=== PATIENT | male | born 1995 | race Caucasian/White ===

== ENCOUNTER 2017-09-21 16:30 | Emergency (ER) | payer OTHER ==
--- NOTE | 2017-09-21 17:02 | EDPHY ---
H & P Stated Complaint: abrasion to left knee Time Seen by Provider: 09/21/17 16:49 HPI/ROS: CHIEF COMPLAINT: Knee pain and swelling HISTORY OF PRESENT ILLNESS: This is a 21-year-old in general good health who presents 4 days after injuring his left knee. He was playing baseball, slid on the field, creating an abrasion on the left knee. The following morning he noticed that the knee was swollen. He has some pain with flexion, partially because of the swelling. He is concerned about the appearance of the abrasion-- he notes that there is some yellow drainage and also that there is some warmth and redness around the abrasion itself. He has not had fever. He does not feel ill. He has been limping because of knee pain. REVIEW OF SYSTEMS: A ten point review of systems was performed and is negative with the exception of the items mentioned in the HPI. Past medical history: Negative Past surgical history: Negative Social history: He is a student. He has a primary care physician in [place]. General Appearance: Alert. Vital signs reviewed. Focused exam performed. Respiratory: Lungs are clear to auscultation; no wheezes, rales, or rhonchi. Cardiovascular: Regular rate and rhythm; no murmur, rub, or gallop. Gastrointestinal: Abdomen is soft and nontender, no masses or organomegaly, bowel sounds normal. Skin: Warm and dry, no rashes on exposed skin, normal color. Pulses: 2+ dorsalis pedis pulses bilaterally. Extremities: Left knee effusion. Full active extension, some pain with flexion at 45 degrees. No joint line tenderness. No ligamentous laxity with provocative testing. There is an abrasion, about the size of a quarter, overlying the left patella. There is fibrinous exudate on a bed of pink granulation tissue. Surrounding the abrasion there is mild warmth and erythema , no streaking. Neurological: Alert and oriented. Moving all four extremities easily and equally. Sensation intact to light touch over the lower extremities. Psychiatric: Normal affect. - Personal History Current Tetanus Diphtheria and Acellular Pertussis (TDAP): Yes - Medical/Surgical History Hx Asthma: No Hx Chronic Respiratory Disease: No Hx Diabetes: No Hx Cardiac Disease: No Hx Renal Disease: No Hx Cirrhosis: No Hx Alcoholism: No Hx HIV/AIDS: No Hx Splenectomy or Spleen Trauma: No Other PMH: adhd, appy, - Social History Smoking Status: Never smoked Constitutional: Initial Vital Signs Temperature (C) 37.4 C 09/21/17 16:37 Heart Rate 81 09/21/17 16:37 Respiratory Rate 16 09/21/17 16:37 Blood Pressure 128/69 H 09/21/17 16:37 O2 Sat (%) 96 09/21/17 16:37 O2 Delivery Mode Room Air Allergies/Adverse Reactions: No Known Allergies Allergy (Verified 09/21/17 17:45) Home Medications: Medication Instructions Recorded Cephalexin [Keflex] 500 mg PO TID #15 cap 09/21/17 Medical Decision Making - Diagnostics Imaging Results: Imaging Impressions Knee X-Ray 09/21/17 16:59 Impression: Negative for fracture. ED Course/Re-evaluation: A 21-year-old male with left knee abrasion that appears to have mild cellulitis surrounding the abrasion. The abrasion itself appears to be healing well with fibrinous exudate on a better granulation tissue. Knee x-ray does not show any evidence of fracture or foreign body. I do not suspect osteomyelitis. There is no evidence of ligamentous injury. He is being started on a short course of Keflex for treatment of a mild cellulitis. Departure - Departure Disposition: Home, Routine, Self-Care Clinical Impression: Abrasion Cellulitis Qualifiers: Site of cellulitis: extremity Site of cellulitis of extremity: lower extremity Laterality: left Qualified Code(s): L03.116 - Cellulitis of left lower limb Condition: Good Instructions: Cellulitis (ED), Abrasion (ED) Additional Instructions: Take antibiotic as prescribed. I think that you have a mild skin infection surrounding the abrasion. Adult Pain & Fever Control: We recommend Acetaminophen (Tylenol) and Ibuprofen (Motrin,Advil) for pain and fever control. When fever is high or pain severe, both drugs can be used at the same time, but at different intervals. Please note the time differences. Your dose is: Acetaminophen 650mg every 4 to 6 hours Ibuprofen formg every 6 hours with food OR Note: do not take Acetaminophen with Hydrocodone (Vicodin, Lortab) or Oycodone (Percocet). These medications also contain Acetaminophen. No more than 3000mg of Acetaminophen should be taken in 24 hours (for an adult). Keep the abraded area clean and dry. If you cover it with a bandage, do not use a bandage that is occlusive. You want air to get to the wound. I recommend that you do cover this wound when playing sports. It is fine for you to engage in any activity that you feel comfortable doing. If you develop fever, more redness, more swelling, increasing pain--you should be re-evaluated. I am referring you to a local primary care physician, in case you need one. Referrals: FAMILY,CLINIC [Other] - As per Instructions Bina Carney DO [Doctor of Osteopathy] - As per Instructions Prescriptions: Cephalexin [Keflex] 500 mg PO TID #15 cap
[2017-09-21 18:04] VITALS: BP 126/60
== END 2017-09-21 18:03 | disposition home or self-care (01) ==
LOC: CED 16:30
DX: S80.212A Abrasion, left knee, initial encounter (principal); L03.116 Cellulitis of left lower limb; X58.XXXA Exposure to other specified factors, initial encounter; Y99.8 Other external cause status; Y93.64 Activity, baseball
CPT/HCPCS: 73564-PO